=== PATIENT | male | born 1970 | race Caucasian/White ===

== ENCOUNTER 2019-05-11 00:14 | Emergency (ER) | payer SELFPAY ==
[~2019-05-11] VITALS: Ht 182.8 cm; Wt 159.0 kg
--- NOTE | 2019-05-11 00:39 | ED EENT ---
History of Present Illness General Chief Complaint: Ear Problems Stated Complaint: EAR PAIN Nursing Triage Note: PT. REPORTED HE HAS HAD LEFT EAR PAIN FOR ABOUT 2 WEEKS. HE HAS TRIED OVER THE COUNTER MEDICATION BUT IT DID NOT HELP. Source: patient Exam Limitations: no limitations History of Present Illness Date Seen by Provider: May 11, 2019 Time Seen by Provider: 00:20 Initial Comments The patient is an obese pleasant 49-year-old male who presents for evaluation of left-sided ear pain over the last 1-2 weeks. He states that qxwz-wtc-bcqokwl medications are not helping. He denies any swimming recently. He is alert and oriented 4, calm, and appears to be in no distress. Timing/Duration: gradual Location: ear (L) Prearrival Treatment: no prearrival treatment Associated Symptoms: denies symptoms Allergies and Home Medications Allergies Coded Allergies: No Known Drug Allergies (Unverified , 05/11/19) Patient Home Medication List Home Medication List Reviewed: Yes Review of Systems Review of Systems Constitutional: no symptoms reported Eyes: No Symptoms Reported Ears: Pain (left ear) Nose: no symptoms reported Mouth: no symptoms reported Throat: no symptoms reported Respiratory: no symptoms reported Cardiovascular: no symptoms reported Gastrointestinal: no symptoms reported Musculoskeletal: no symptoms reported Skin: no symptoms reported Neurological: No Symptoms Reported Hematologic/Lymphatic: No Symptoms Reported Immunological/Allergic: no symptoms reported All Other Systems Reviewed Negative Unless Noted: Yes Past Snttvqv-Vmzexg-Reumje Hx Past Med/Social Hx: Reviewed Nursing Past Med/Soc Hx Patient Social History Recent Foreign Travel: No Contact w/Someone Who Travel: No Recent Infectious Disease Expo: No Recent Hopitalizations: No Physical Abuse: No Sexual Abuse: No Mistreated: No Fear: No Seasonal Allergies Seasonal Allergies: No Past Medical History Surgeries: No Respiratory: No Cardiac: No Neurological: No Genitourinary: No Gastrointestinal: No Musculoskeletal: No Endocrine: No HEENT: No Cancer: No Psychosocial: No Integumentary: No Blood Disorders: No Physical Exam Vital Signs Vital Signs - First Documented 05/11/19 00:26 Temp 36.5 Pulse 92 B/P (MAP) 163/108 (126) O2 Delivery Room Air Height, Weight, BMI Height: '" Weight: lbs. oz. kg; 47.00 BMI Method: General Appearance: WD/WN, no apparent distress Eyes: bilateral eye normal inspection, bilateral eye PERRL, bilateral eye EOMI Ears: right ear canal normal, right ear TM normal; left ear foreign body, left ear swelling; bilateral ear auricle normal Nose: normal inspection Mouth/Throat: normal mouth inspection Neck: non-tender, full range of motion, supple Cardiovascular: regular rate, rhythm, no edema, no JVD Respiratory: lungs clear, normal breath sounds, no respiratory distress Gastrointestinal: normal bowel sounds, non tender, soft Neurologic/Psychiatric: alert, normal mood/affect Skin: normal color, warm/dry Progress/Results/Core Measures Results/Orders Vital Signs/I&O 05/11/19 00:26 Temp 36.5 Pulse 92 B/P (MAP) 163/108 (126) O2 Delivery Room Air Blood Pressure Mean: 126 Progress Progress Note : Progress Note @0035 - otitis externa is present on the left. Advise follow-up with PCP in the next 1-2 days and return to the Emergency Department immediately for new or worsening symptoms. The patient expresses verbal understanding and agreement wi th the plan. Departure Impression Primary Impression: Left otitis externa Disposition: 01 HOME, SELF-CARE Condition: Stable Departure-Patient Inst. Decision time for Depature: 00:36 Referrals: JAVY ULLOA MD (PCP/Family) Primary Care Physician Patient Instructions: Outer Ear Infection (DC) Add. Discharge Instructions: Take the prescribed medicine instructed. Return to the emergency Department immediately for new or worsening symptoms. Follow-up with your doctor in the next 1-2 days. Scripts Tramadol HCl (Ultram) 50 Mg Tablet 50 MG PO Q6H for 3 Days, #12 TAB Prov: MADELINE DAMIAN DO 05/11/19 Ciprofloxacin/Hydrocortisone (Cipro Hc Otic Suspension) 1 Ea Susp 3 DROPS OT BID for 7 Days, #10 ML Prov: MADELINE DAMIAN DO 05/11/19 MADELINE DAMIAN DO May 11, 2019 00:38
[2019-05-11] MEDS ORDERED: TRAM-42 PO (00:40)
[2019-05-11] MEDS ORDERED: NF-CIPROHC OT (00:40)
[2019-05-11 00:42] VITALS: BP 163/108
== END 2019-05-11 00:43 | disposition home or self-care (01) ==
LOC: ER FS 00:19
DX: H60.92 Unspecified otitis externa, left ear (principal)
CPT/HCPCS: 99282

== ENCOUNTER 2020-12-13 06:28 | Emergency (ER) | payer SELFPAY ==
[~2020-12-13] VITALS: Ht 182.8 cm; Wt 141.6 kg
[~2020-12-13 06:28] MED LIST: NF-CIPROHC OT; TRAM-42 PO
--- NOTE | 2020-12-13 07:01 | ED General ---
General Chief Complaint: Dizziness/Syncope Stated Complaint: DIZZINESS;SCALP TENDERNESS Nursing Triage Note: Pt awake, alert, oriented. Ambulated from waiting room to ER 4 without difficulty. Pt reports that he felt dizzy when he woke up this morning. Also has tenderness to the top of his head. Denies falling or injury. Airway intact. Respirations even et unlabored. Skin warm, dry, appropriate for ethnicity. No sx of acute distress. (LASHAWN MUNROE DO) History of Present Illness Date Seen by Provider: Dec 13, 2020 Time Seen by Provider: 06:50 Initial Comments 50-year-old male presents with dizziness. He reports that when he woke up this morning he felt dizzy. He also has a tender spot on the top of his head. He did not have any syncope. He denies any injury or trauma to the area. He denies a history of headaches. He denies any nausea or vomiting. He describes the dizziness as a room spinning. (LASHAWN MUNROE DO) Allergies and Home Medications Allergies Coded Allergies: No Known Drug Allergies (Unverified , 05/11/19) Patient Home Medication List Home Medication List Reviewed: Yes (LASHAWN MUNROE DO) Ciprofloxacin/Hydrocortisone (Cipro Hc Otic Suspension) 1 Ea Susp, 3 DROPS OT BID Prescribed by: MADELINE DAMIAN on 05/11/19 0040 Meclizine HCl (Meclizine HCl) 25 Mg Tablet, 25 MG PO Q8H Prescribed by: REBECA MARTINES on 12/13/20 0755 Tramadol HCl (Ultram) 50 Mg Tablet, 50 MG PO Q6H Prescribed by: MADELINE DAMIAN on 05/11/19 0040 Review of Systems Review of Systems Constitutional: No chills; dizziness; No fever EENTM: see HPI Respiratory: no symptoms reported Cardiovascular: no symptoms reported Gastrointestinal: no symptoms reported Genitourinary: no symptoms reported Musculoskeletal: no symptoms reported Skin: see HPI Psychiatric/Neurological: No Symptoms Reported Hematologic/Lymphatic: No Symptoms Reported (LASHAWN MUNROE DO) Past Zrwpnmi-Mpchnj-Icvagp Hx Seasonal Allergies Seasonal Allergies: No (LASHAWN MUNROE DO) Past Medical History Surgeries: No Respiratory: No Cardiac: No Neurological: No Genitourinary: No Gastrointestinal: No Musculoskeletal: No Endocrine: No HEENT: No Cancer: No Psychosocial: No Integumentary: No Blood Disorders: No (CARI MUNROER Mara DO) Physical Exam Vital Signs Vital Signs - First Documented 12/13/20 06:35 Temp 36.2 Pulse 80 Resp 20 B/P (MAP) 118/74 (89) Pulse Ox 97 O2 Delivery Room Air (REBECA MARTINES ) Vital Signs Capillary Refill : Less Than 3 Seconds (CARI MUNROER Mara DO) Height, Weight, BMI Height: '" Weight: lbs. oz. kg; 42.00 BMI Method: General Appearance: No Apparent Distress, WD/WN HEENT: PERRL/EOMI Neck: Full Range of Motion, Normal Inspection Respiratory: Lungs Clear, Normal Breath Sounds Cardiovascular: Regular Rate, Rhythm, No Edema Extremity: Normal Capillary Refill, Normal Inspection Neurologic/Psychiatric: Alert, Oriented x3, No Motor/Sensory Deficits Skin: Other (Small discoloration to the swollen area on top of the scalp that when you press on it makes dizziness worse ) (MUNROELASHAWN L DO) Progress/Results/Core Measures Suspected Sepsis SIRS Temperature: Pulse: 80 Respiratory Rate: 20 Blood Pressure 118 /74 Mean: 89 (LASHAWN MUNROE DO) Results/Orders Lab Results Laboratory Tests Test 12/13/20 07:23 Range/Units White Blood Count 5.4 4.3-11.0 10^3/uL Red Blood Count 5.53 H 4.30-5.52 10^6/uL Hemoglobin 18.0 H 13.3-17.7 g/dL Hematocrit 53 40-54 % Mean Corpuscular Volume 96 80-99 fL Mean Corpuscular Hemoglobin 33 25-34 pg Mean Corpuscular Hemoglobin Concent 34 32-36 g/dL Red Cell Distribution Width 14.4 10.0-14.5 % Platelet Count 128 L 130-400 10^3/uL Mean Platelet Volume 10.6 9.0-12.2 fL Immature Granulocyte % (Auto) 0 % Neutrophils (%) (Auto) 48 42-75 % Lymphocytes (%) (Auto) 39 12-44 % Monocytes (%) (Auto) 7 0-12 % Eosinophils (%) (Auto) 5 0-10 % Basophils (%) (Auto) 1 0-10 % Neutrophils # (Auto) 2.6 1.8-7.8 X 10^3 Lymphocytes # (Auto) 2.1 1.0-4.0 X 10^3 Monocytes # (Auto) 0.4 0.0-1.0 X 10^3 Eosinophils # (Auto) 0.3 0.0-0.3 10^3/uL Basophils # (Auto) 0.0 0.0-0.1 10^3/uL Immature Granulocyte # (Auto) 0.0 0.0-0.1 10^3/uL Neutrophils % (Manual) 50 % Lymphocytes % (Manual) 39 % Monocytes % (Manual) 4 % Eosinophils % (Manual) 4 % Basophils % (Manual) 1 % Atypical Lymphocytes 2 % Toxic Granulation 1+ Platelet Estimate DECREASED Percent Immature Platelet Fraction 3.9 0.0-7.6 % Blood Morphology Comment NORMAL Sodium Level 138 135-145 MMOL/L Potassium Level 3.9 3.6-5.0 MMOL/L Chloride Level 107 98-107 MMOL/L Carbon Dioxide Level 23 21-32 MMOL/L Anion Gap 8 5-14 MMOL/L Blood Urea Nitrogen 17 7-18 MG/DL Creatinine 0.58 L 0.60-1.30 MG/DL Estimat Glomerular Filtration Rate 150 BUN/Creatinine Ratio 29 Glucose Level 113 H 70-105 MG/DL Calcium Level 8.7 8.5-10.1 MG/DL Corrected Calcium 8.9 8.5-10.1 MG/DL Total Bilirubin 0.6 0.1-1.0 MG/DL Aspartate Amino Transf (AST/SGOT) 38 H 5-34 U/L Alanine Aminotransferase (ALT/SGPT) 37 0-55 U/L Alkaline Phosphatase 67 40-136 U/L C-Reactive Protein < 0.30 <0.50 MG/DL Total Protein 7.0 6.4-8.2 GM/DL Albumin 3.7 3.2-4.5 GM/DL Smear Scan ATYP LYMPHS FLAGGED (ROVENSTINE,REBECA L DO) Medications Given in ED Current Medications Medications Dose Ordered Sig/Kevin Route Start Time Stop Time Status Last Admin Dose Admin Meclizine HCl 25 mg ONCE ONCE PO 12/13/20 07:15 12/13/20 07:16 DC 12/13/20 07:15 25 MG (ROVENSTINE,REBECA L DO) Vital Signs/I&O 12/13/20 06:35 Temp 36.2 Pulse 80 Resp 20 B/P (MAP) 118/74 (89) Pulse Ox 97 O2 Delivery Room Air (REBECA MARTINES DO) Vital Signs/I&O Capillary Refill : Less Than 3 Seconds (LASHAWN MUNROE DO) Blood Pressure Mean: 89 Consults Consults : Consults Notes NDICATION: Vertigo and scalp pain. COMPARISON: None available. FINDINGS: No hyperdense hemorrhage or space-occupying mass. No hydrocephalus or midline shift. The basilar cisterns are normal. Carias-white matter differentiation is well preserved. The mastoid air cells are clear. Paranasal sinuses are normal. No focal osseous abnormality of the calvarium. IMPRESSION: 1. No acute intracranial process. 1. No scalp swelling or calvarial abnormality. Dictated by: Dictated on workstation # [id number] Dict: 12/13/20719 Trans: 12/13/20720 [facility] [id number] Interpreted by: ARAVIND BENAVIDES MD Electronically signed by: ARAVIND BENAVIDES MD 12/13/20720 (REBECA MARTINES DO) Departure Impression Primary Impression: Dizziness Disposition: 01 HOME, SELF-CARE Condition: Stable Departure-Patient Inst. Decision time for Depature: 07:48 (REBECA MARTINES DO) Referrals: JAVY MENJIVAR MD (PCP/Family) Primary Care Physician Patient Instructions: Vertigo (a Type of Dizziness) (DC) Add. Discharge Instructions: See Dr Menjivar in 2 weeks if not improving, sooner if worse. All discharge instructions reviewed with patient and/or family. Voiced understanding. Scripts Meclizine HCl (Meclizine HCl) 25 Mg Tablet 25 MG PO Q8H for Dizziness, #20 TAB Prov: REBECA MARTINES DO 12/13/20 Work/School Note: Work Release Form Date Seen in the Emergency Department: Dec 13, 2020 Return to Work: Dec 14, 2020 Restrictions: No Restrictions LASHAWN MUNROE DO Dec 13, 2020 07:01 REBECA MARTINES DO Dec 13, 2020 07:52
[2020-12-13] MEDS ORDERED: MECLIZINE 25 MG (ANTIVERT) TAB PO ONE (07:15)
--- NOTE | 2020-12-13 07:23 | Diagnostic Imaging Report ---
PROCEDURE: CT head without contrast. TECHNIQUE: Multiple contiguous axial images were obtained through the brain without the use of intravenous contrast. Auto Exposure Controls were utilized during the CT exam to meet ALARA standards for radiation dose reduction. INDICATION: Vertigo and scalp pain. COMPARISON: None available. FINDINGS: No hyperdense hemorrhage or space-occupying mass. No hydrocephalus or midline shift. The basilar cisterns are normal. Carias-white matter differentiation is well preserved. The mastoid air cells are clear. Paranasal sinuses are normal. No focal osseous abnormality of the calvarium. IMPRESSION: 1. No acute intracranial process. 1. No scalp swelling or calvarial abnormality. Dictated by: Dictated on workstation # [id number]
[2020-12-13 07:29] LABS: WHITE BLOOD COUNT 5.4 10^3/uL (4.3-11.0)
[2020-12-13 07:31] LABS: EOSINOPHILS % (AUTO) 5 % (0-10); HEMATOCRIT 53 % (40-54); LYMPHOCYTES % (AUTO) 39 % (12-44); MEAN CORPUSCULAR HEMOGLOBIN 33 pg (25-34); MEAN CORPUSCULAR HGB CONC 34 g/dL (32-36); MEAN CORPUSCULAR VOLUME 96 fL (80-99); MEAN PLATELET VOLUME 10.6 fL (9.0-12.2); MONOCYTES % (AUTO) 7 % (0-12); NEUTROPHILS % (AUTO) 48 % (42-75); PLATELET COUNT 128 10^3/uL (130-400)
[2020-12-13 07:32] LABS: BASOPHILS % (AUTO) 1 % (0-10); EOSINOPHILS # (AUTO) 0.3 10^3/uL (0.0-0.3); LYMPHOCYTES # (AUTO) 2.1 X 10^3 (1.0-4.0); MONOCYTES # (AUTO) 0.4 X 10^3 (0.0-1.0); NEUTROPHILS # (AUTO) 2.6 X 10^3 (1.8-7.8)
[2020-12-13 07:43] LABS: BASOPHILS % (MANUAL) 1 %; EOSINOPHILS % (MANUAL) 4 %; LYMPHOCYTES % (MANUAL) 39 %; MONOCYTES % (MANUAL) 4 %; NEUTROPHILS % (MANUAL) 50 %; SMEAR SCAN COMMENT ATYP LYMPHS FLAGGED
[2020-12-13 07:44] LABS: ATYPICAL LYMPHOCYTES 2 %; PLATELET ESTIMATE DECREASED; RBC MORPH NORMAL; TOXIC GRANULATION/VACUOLAZATIO 1+
[2020-12-13 07:50] LABS: BUN/CREATININE RATIO 29; CARBON DIOXIDE 23 MMOL/L (21-32); CHLORIDE 107 MMOL/L (98-107); CREATININE SERUM 0.58 MG/DL (0.60-1.30); GFR ESTIMATED 150; GLUCOSE 113 MG/DL (70-105); POTASSIUM 3.9 MMOL/L (3.6-5.0); SODIUM 138 MMOL/L (135-145)
[2020-12-13 07:51] LABS: ALANINE AMINOTRANSFERASE 37 U/L (0-55); ALBUMIN 3.7 GM/DL (3.2-4.5); ALKALINE PHOSPHATASE 67 U/L (40-136); BILIRUBIN,TOTAL 0.6 MG/DL (0.1-1.0); CALCIUM 8.7 MG/DL (8.5-10.1)
[2020-12-13] MEDS ORDERED: MECL-149 PO (07:55)
[2020-12-13 08:01] VITALS: BP 118/74
== END 2020-12-13 07:58 | disposition home or self-care (01) ==
LOC: EDUNIT# 06:28 → ER FS 06:31
DX: R42 Dizziness and giddiness (principal)
CPT/HCPCS: 36415; 70450; 80053; 85007; 85027; 86141

== ENCOUNTER 2021-09-20 18:10 | Inpatient (IN) | payer SELFPAY ==
[~2021-09-20] VITALS: Ht 182.9 cm; Wt 142.4 kg
[~2021-09-20 18:10] MED LIST changes: +MECL-149 PO
[2021-09-20] MEDS ORDERED: HEParin 1000 UNIT/ML (10ML VIAL) FOR BOLUS ONE (18:18)
[2021-09-20] MEDS ORDERED: LIDOCAINE 1% INJ 20 ML VIAL ONE (18:18)
[2021-09-20] MEDS ORDERED: MIDAZOLAM 5 MG/5 ML (VERSED) VIAL ONE (18:18)
[2021-09-20] MEDS ORDERED: NS IV 1000 ML 1,000 ML ONE (18:18)
[2021-09-20] MEDS ORDERED: HEParin (CATH LAB) 2,000 ML IV ONE (18:18)
[2021-09-20] MEDS ORDERED: NITRO DRIP 25000 MCG/D5W 250 ML IV ONE (18:19)
--- NOTE | 2021-09-20 18:20 | ED Chest Pain ---
General Chief Complaint: Chest Pain Stated Complaint: STEMI Source: patient, EMS Exam Limitations: no limitations History of Present Illness Date Seen by Provider: Sep 20, 2021 Time Seen by Provider: 18:14 Initial Comments Patient is a 51-year-old male who presents to the emergency department by [facility] chief complaint ST segment elevation PR. Chest pain onset approximately 4 PM while the patient was at rest. He stated initially that he thought he was having gas pains and was belching quite a bit. He states that he took some gas medicine without relief of symptoms. He is short of breath and nauseous. He received a significant amount of morphine approximately 15 mg prior to arrival as well as full-strength aspirin and 4 of Zofran. Patient has never had symptoms like this before. He denies any significant past medical history. He is a smoker. No recent illnesses. All other review of systems reviewed and negative except as stated. 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 Associated Symptoms: nausea/vomiting, shortness of breath, weakness Allergies and Home Medications Allergies Coded Allergies: No Known Drug Allergies (Unverified , 05/11/19) Patient Home Medication List Home Medication List Reviewed: Yes Ciprofloxacin/Hydrocortisone (Cipro Hc Otic Suspension) 1 Ea Susp, 3 DROPS OT BID Prescribed by: MADELINE DAMIAN on 05/11/19 0040 Meclizine HCl (Meclizine HCl) 25 Mg Tablet, 25 MG PO Q8H Prescribed by: REBECA MARTINES on 12/13/20 0755 Tramadol HCl (Ultram) 50 Mg Tablet, 50 MG PO Q6H Prescribed by: MADELINE DAMIAN on 05/11/19 0040 Review of Systems Review of Systems Constitutional: see HPI, diaphoresis, weakness EENTM: No Symptoms Reported Respiratory: Shortness of Air Cardiovascular: Chest Pain Gastrointestinal: Nausea Genitourinary: No Symptoms Reported Musculoskeletal: no symptoms reported Skin: no symptoms reported Psychiatric/Neurological: No Symptoms Reported All Other Systems Reviewed Negative Unless Noted: Yes Past Mmxtzdy-Tdrrjq-Uqladc Hx Seasonal Allergies Seasonal Allergies: No Past Medical History Surgeries: No Respiratory: No Cardiac: No Neurological: No Genitourinary: No Gastrointestinal: No Musculoskeletal: No Endocrine: No HEENT: No Cancer: No Psychosocial: No Integumentary: No Blood Disorders: No Physical Exam Vital Signs Vital Signs - First Documented Capillary Refill : Height, Weight, BMI Height: '" Weight: lbs. oz. kg; 42.00 BMI Method: General Appearance: WD/WN, Anxious, Moderate Distress HEENT: PERRL/EOMI Neck: Normal Inspection Respiratory: Lungs Clear, Normal Breath Sounds, No Accessory Muscle Use, No Respiratory Distress Cardiovascular: Regular Rate, Rhythm, Normal Peripheral Pulses Gastrointestinal: Non Tender, Soft Extremity: Normal Inspection, Normal Range of Motion, No Pedal Edema Neurologic/Psychiatric: Alert, Oriented x3, No Motor/Sensory Deficits, Normal Mood/Affect Skin: Normal Color, Diaphoresis Progress/Results/Core Measures Results/Orders Lab Results Laboratory Tests Test 09/20/21 18:23 Range/Units White Blood Count 9.1 4.3-11.0 10^3/uL Red Blood Count 5.80 H 4.30-5.52 10^6/uL Hemoglobin 18.2 H 13.3-17.7 g/dL Hematocrit 53 40-54 % Mean Corpuscular Volume 91 80-99 fL Mean Corpuscular Hemoglobin 31 25-34 pg Mean Corpuscular Hemoglobin Concent 34 32-36 g/dL Red Cell Distribution Width 13.1 10.0-14.5 % Platelet Count 166 130-400 10^3/uL Mean Platelet Volume 10.1 9.0-12.2 fL Immature Granulocyte % (Auto) 0 % Neutrophils (%) (Auto) 63 42-75 % Lymphocytes (%) (Auto) 27 12-44 % Monocytes (%) (Auto) 6 0-12 % Eosinophils (%) (Auto) 3 0-10 % Basophils (%) (Auto) 1 0-10 % Neutrophils # (Auto) 5.7 1.8-7.8 10^3/uL Lymphocytes # (Auto) 2.5 1.0-4.0 10^3/uL Monocytes # (Auto) 0.6 0.0-1.0 10^3/uL Eosinophils # (Auto) 0.2 0.0-0.3 10^3/uL Basophils # (Auto) 0.1 0.0-0.1 10^3/uL Immature Granulocyte # (Auto) 0.0 0.0-0.1 10^3/uL Prothrombin Time 14.2 12.2-14.7 SEC INR Comment 1.1 0.8-1.4 Activated Partial Thromboplast Time 34 24-35 SEC Sodium Level 137 135-145 MMOL/L Potassium Level 3.8 3.6-5.0 MMOL/L Chloride Level 104 98-107 MMOL/L Carbon Dioxide Level 17 L 21-32 MMOL/L Anion Gap 16 H 5-14 MMOL/L Blood Urea Nitrogen 14 7-18 MG/DL Creatinine 1.00 0.60-1.30 MG/DL Estimat Glomerular Filtration Rate 92 BUN/Creatinine Ratio 14 Glucose Level 158 H 70-105 MG/DL Calcium Level 8.7 8.5-10.1 MG/DL Corrected Calcium 8.8 8.5-10.1 MG/DL Magnesium Level 1.7 1.6-2.4 MG/DL Total Bilirubin 0.4 0.1-1.0 MG/DL Aspartate Amino Transf (AST/SGOT) 38 H 5-34 U/L Alanine Aminotransferase (ALT/SGPT) 47 0-55 U/L Alkaline Phosphatase 64 40-136 U/L Myoglobin 78.6 10.0-92.0 NG/ML Troponin I < 0.028 <0.028 NG/ML Total Protein 7.6 6.4-8.2 GM/DL Albumin 3.9 3.2-4.5 GM/DL My Orders Orders - JENNIFER CARRIZALES MD Ekg Tracing (09/20/21 18:11) Ticagrelor Tablet (Brilinta Tablet) (09/20/21 18:30) Heparin Injection (Heparin Injection) (09/20/21 18:30) Cbc With Automated Diff (09/20/21 18:18) Magnesium (09/20/21 18:18) Comprehensive Metabolic Panel (09/20/21 18:18) Myoglobin Serum (09/20/21 18:18) Protime With Inr (09/20/21 18:18) Partial Thromboplastin Time (09/20/21 18:18) O2 (09/20/21 18:18) Monitor-Rhythm Ecg Trace Only (09/20/21 18:18) Lipid Panel (09/21/21 06:00) Ed Iv/Invasive Line Start (09/20/21 18:18) Troponin I Earnest (09/20/21 18:18) Heparin Injection (Heparin Injection) (09/20/21 18:30) Medications Given in ED Current Medications Medications Dose Ordered Sig/Kevin Route Start Time Stop Time Status Last Admin Dose Admin Heparin Sodium (Porcine) 5,000 units ONCE ONCE IV 09/20/21 18:30 09/20/21 18:31 DC 09/20/21 18:26 5,000 UNITS Ticagrelor 180 mg ONCE ONCE PO 09/20/21 18:30 09/20/21 18:31 DC 09/20/21 18:22 180 MG Vital Signs/I&O 09/20/21 09/20/21 09/20/21 18:13 18:13 18:29 Temp 35.7 35.7 Pulse 99 101 Resp 20 16 B/P (MAP) 160/107 (124) 169/101 Pulse Ox 100 100 100 O2 Delivery Nasal Cannula Nasal Cannula Nasal Cannula O2 Flow Rate 2.00 2.00 2.00 Initial ECG Impression Date: Sep 20, 2021 Initial ECG Impression Time: 18:15 Initial ECG Rate: 97 Initial ECG Rhythm: Normal Sinus Initial ECG Intervals MD interval 221 QRS [address] segment elevation septal leads V1, V2, V3 and V4, ST depression inferiorly leads II, III and aVF Departure Communication (Admissions) Time/Spoke to Admitting Phy: 18:15 Dr Lewis Impression Primary Impression: STEMI (ST elevation myocardial infarction) Qualified Codes: I21.3 - ST elevation (STEMI) myocardial infarction of unspecified site Disposition: ADMITTED INPATIENT Condition: Critical Admissions Decision to Admit Reason: Admit from ER (General) Decision to Admit/Date: Sep 20, 2021 Time/Decision to Admit Time: 18:15 Departure-Patient Inst. Referrals: JAVY ULLOA MD (PCP/Family) Primary Care Physician JENNIFER CARRIZALES MD Sep 20, 2021 18:20
[2021-09-20] MEDS ORDERED: TICAGRELOR 90 MG TABLET (BRILINTA) PO ONE (18:30)
--- NOTE | 2021-09-20 18:31 | Conscious Sedation/ASA ---
Conscious Sedation Pre-Proced Time 18:31 ASA Score 3 For ASA 3 and 4: Consider anesthesia and medical clearance. Also, for patients with a history of failed moderate sedation consider anesthesia. Airway Lungs Heart ASA score ASA 1: a normal healthy patient ASA 2: a patient with a mild systemic disease (mid diabetes, controlled hypertension, obesity x ASA 3: a patient with a severe systemic disease that limits activity (angina, COPD, prior Myocardial infarction) ASA 4: a patient with an incapacitating disease that is a constant threat to life (CHF, renal failure) ASA 5: a moribund patient not expected to survive 24 hrs. (ruptured aneurysm) ASA 6: a declared brain- patient whose organs are being harvested. For emergent operations, add the letter E after the classification Mallampati Classification Grade 3 Sedation Plan Analgesia, Amnesia, Plan communicated to team members, Discussed options with patient/fam, Discussed risks with patient/fam The patient is an appropriate candidate to undergo the planned procedure, sedation, and anesthesia. The patient immediately re-assessed prior to indication. ILANA LENNON MD Sep 20, 2021 18:31
--- NOTE | 2021-09-20 18:31 | Cardiology History & Physical ---
HPI-Cardiology Cardiology Consultation Date of Consultation 09/20/21 Date of Admission Time Seen by Provider: 18:28 Indication: Acute myocardial infarction HPI 51 years old gentleman with no significant past medical history, has been having chest pain on and off. Started to have severe chest pain for the past 2-1/2 hours, called EMS, he was noted to have ST elevation in the anterior wall and brought to the emergency room. Nitroglycerin did not help his pain. On my evaluation he is diaphoretic, anxious, having active chest pain in the retrosternal area. PMH-Cardiology Seasonal Allergies Seasonal Allergies: No Surgeries No Respiratory No Cardiovascular No Neurological No Genitourinary No Gastrointestinal No Musculoskeletal No Endocrine No HEENT No Cancer No Psychosocial No Integumentary No Blood Transfusions No Other PMHx No significant past medical history Social History Patient Social History Employed/Student: employed Smoking: Current every day smoker Have you traveled recently?: No Family Hx Other Noncontributory ROS-Cardiology Review of Systems General: No Chills, No Night Sweats, No Fatigue, No Malaise, No Appetite HEENT: No Head Aches, No Visual Changes, No Eye Pain, No Ear Pain, No Dysphasia, No Sinus Congestion, No Post Nasal Drip, No Sore Throat Pulmonary: Dyspnea; No Cough, No Pleuritic Chest Pain Cardiovascular: Chest Pain; No: Palpitations, Orthopnea, Paroxysmal Noc. Dyspnea, Edema, Lt Headedness Gastrointestinal: No: Nausea, Vomiting, Abdominal Pain, Diarrhea, Constipation, Melena, Hematochezia Genitourinary: No Dysuria, No Frequency, No Incontinence, No Hematuria, No Retention Musculoskeletal: No: neck pain, shoulder pain, arm pain, back pain, hand pain, leg pain, foot pain Neurological: No: Weakness, Numbness, Incoordination, Change in speech, Confusion, Seizures Home Medications & Allergies Allergies: Coded Allergies: No Known Drug Allergies (Unverified , 05/11/19) Home Medication List Reviewed: Yes Exam-Cardiology Vital Signs Vital Signs Date Time Temp Pulse Resp B/P (MAP) Pulse Ox O2 Delivery O2 Flow Rate FiO2 09/20/21 18:13 35.7 99 20 160/107 (124) 100 Nasal Cannula 2.00 Exam General Appearance: Alert, Oriented X3, Cooperative, No Acute Distress HEENT: Atraumatic, PERRLA Respiratory: Clear to Auscultation, Normal Air Movement Cardiovascular: Regular Rate, Normal S1, Normal S2, No Murmurs Abdominal: Normal Bowel Sounds, Soft, No Tenderness, No Hepatosplenomegaly, No Masses Extremities: No Clubbing, No Cyanosis, No Edema, Normal Pulses, No Tenderness/Swelling Skin: No Rashes, No Breakdown, No Significant Lesion Neuro: Normal Gait, Normal Speech, Strength at 5/5 X4 Ext, Normal Tone, Sensation Intact Psych/Mental Status: Mental Status NL, Mood NL Results Labs Labs Laboratory Tests 09/20/21 18:23: A/P-Cardiology Admission Diagnosis Acute ST elevation myocardial infarction Coronary artery disease Hypertension Hyperlipidemia Admission Status: Inpatient Order (span 2 midnights) Reason for Inpatient Admission: Acute ST elevation myocardial infarction Assessment/Plan Acute ST elevation myocardial infarction in the anterior lateral wall. Planning to proceed with emergency cardiac catheterization Given aspirin and Brilinta and 5000 units of heparin Coronary artery disease, plan to proceed with cardiac catheterization Hypertension, starting low-dose beta-blockers Hyperlipidemia, starting statin empirically Tobaccoism, educated on smoking cessation Morbid obesity, BMI 51. ILANA LENNON MD Sep 20, 2021 18:31
[2021-09-20 18:35] LABS: BASOPHILS # (AUTO) 0.1 10^3/uL (0.0-0.1); BASOPHILS % (AUTO) 1 % (0-10); EOSINOPHILS # (AUTO) 0.2 10^3/uL (0.0-0.3); EOSINOPHILS % (AUTO) 3 % (0-10); HEMATOCRIT 53 % (40-54); HEMOGLOBIN 18.2 g/dL (13.3-17.7); LYMPHOCYTES # (AUTO) 2.5 10^3/uL (1.0-4.0); LYMPHOCYTES % (AUTO) 27 % (12-44); MEAN CORPUSCULAR HEMOGLOBIN 31 pg (25-34); MEAN CORPUSCULAR HGB CONC 34 g/dL (32-36); MEAN CORPUSCULAR VOLUME 91 fL (80-99); MEAN PLATELET VOLUME 10.1 fL (9.0-12.2); MONOCYTES # (AUTO) 0.6 10^3/uL (0.0-1.0); MONOCYTES % (AUTO) 6 % (0-12); NEUTROPHILS # (AUTO) 5.7 10^3/uL (1.8-7.8); NEUTROPHILS % (AUTO) 63 % (42-75); PLATELET COUNT 166 10^3/uL (130-400); WHITE BLOOD COUNT 9.1 10^3/uL (4.3-11.0)
[2021-09-20 18:51] LABS: INR 1.1 (0.8-1.4); PROTHROMBIN TIME PATIENT 14.2 SEC (12.2-14.7)
[2021-09-20 18:59] LABS: ALBUMIN 3.9 GM/DL (3.2-4.5); BILIRUBIN,TOTAL 0.4 MG/DL (0.1-1.0); CALCIUM 8.7 MG/DL (8.5-10.1); MAGNESIUM 1.7 MG/DL (1.6-2.4); POTASSIUM 3.8 MMOL/L (3.6-5.0); TOTAL PROTEIN 7.6 GM/DL (6.4-8.2)
[2021-09-20] MEDS ORDERED: EPTIFIBATIDE BOLUS 20 ML IV ONE (19:03)
[2021-09-20] MEDS ORDERED: fentaNYL INJ 100 MCG/2 ML AMP ONE (19:04)
[2021-09-20] MEDS ORDERED: PATIENT MAY USE OWN MEDS, ALL PO SCH (19:30)
--- NOTE | 2021-09-20 19:37 | Cardiac Cath Report ---
Cardiac Cath Report Physician (s)/Cotton Cleaner (s) Physician ILANA LENNON MD Pre-Procedure Diagnosis Pre-Procedure Diagnosis: Acute ST elevation myocardial infarction Post-Procedure Note Procedure Start Date: Sep 20, 2021 Name of Procedure: Emergency cardiac catheterization Emergency stenting and thrombectomy of the LAD Findings/Procedure Note PROCEDURE NOTE: 51 years old gentleman with no significant past history, smoker with morbid obesity, admitted with acute ST elevation myocardial infarction in the anterior wall, emergency cardiac catheterization was advised. After explaining the procedure to the patient, all pros and cons were explained, all questions were answered. The patient signed the consent and then he was placed on the cardiac catheterization laboratory. Groin was prepped SL fashion local anesthesia was used. Sheath placed in the right femoral artery. Du right catheter advanced to the right coronary system, angiogram was done then I used Du left 3.5 guide advanced to the left coronary system, did angiogram and patient has total occlusion of the LAD I had significant difficulty advancing the BMW wire through the thrombus in the LAD once I advanced it through the thrombus I was able to establish some flow. The wire was in the small diagonal branch. I advanced export catheter and did 1 flush with 10 cc of blood removed and clots subsequently immediate establishment of flow was identified. Door to establishment of flow was 37 minutes. Then I proceeded with balloon dilatation using trek 3.5 x 20 mm balloon then I proceeded with deployment of a harshil point stent 3.5 x 23 postdilated with 4.0 trek balloon expanded to 4.2 mm with excellent results. After recannulizing of the LAD patient had multiple episodes of accelerated idioventricular rhythm and nonsustained ventricular tachycardia, given lidocaine and then amiodarone bolus. Pigtail catheter was advanced to the left ventricular cavity, pressure was measured, pullback LV to aorta was done At the end of the procedure the sheath was removed. Closure device was deployed FINDINGS: Hemodynamics LV 100/20, end-diastolic pressure of 20 Aorta 103/76 mean of 88 ANATOMY: Left Main is free of obstructive disease Left Anterior Descending has diffuse ectasia proximally, total occlusion pro ximally, successful thrombectomy then balloon angioplasty then deployment of a stent using harshil point 3.5 x 23 expanded to 4.2 mm in the proximal LAD with excellent results. Door to establishment of flow was 37 minutes Left Circumflex is moderate in size. 50% stenosis in the mid circumflex artery nonobstructive disease Right Coronary Artery is dominant artery with diffuse tortuosity 30-40% mid right coronary artery stenosis nonobstructive disease LV Gram was not done, pressure was measured CONCLUSION: 1. Acute ST elevation myocardial infarction in the anterior wall with door to establish small flow 37-minute 2. Status post total occlusion of the proximal LAD successful thrombectomy and balloon angioplasty then deployment of harshil point stent 3.5 x 23 mm expanded to 4.2 mm with excellent results 3. Mild to moderate disease in the circumflex artery, mild diffuse disease in the dominant right coronary artery 4. Elevated left ventricular end-diastolic pressure DISCUSSION AND RECOMMENDATION: Patient was loaded with aspirin Plavix, received Integrilin and heparin. We will continue monitoring in ICU Anesthesia Type: Conscious Sedation Estimated blood loss (mL): 35 ml Contrast Amount: l Total Radiation Dose: 1820 mGy Post-Procedure Diagnosis Post-operative diagnosis: Acute ST elevation myocardial infarction Coronary artery disease Tobaccoism Obesity ILANA LENNON MD Sep 20, 2021 19:37
--- NOTE | 2021-09-20 20:29 | Tele-ICU Progress Note ---
Progress Note 51M without known PMH, obesity, smoker admitted with an acute STEMI in the anterior lateral wall. He was given nitro, ASA, brilinta, heparin and taken for emergent cath. Found to have total occlusion of the prox LAD now s/p successful thrombectomy and balloon angioplasty with deployment of stent. Patient is now resting comfortably, in no distress. - STEMI: now s/p intervention as above. Anticoagulation and antiplatelets per cardiology. Flat bedrest/groin monitoring per protocol. - HTN: metoprolol initiated - HLD: lipitor and fish oil initiated. Lipid panel ordered for AM. Focused Exam Height, Weight, BMI Height: '" Weight: lbs. oz. kg; 43.82 BMI Method: BUZZ OMER MD Sep 20, 2021 20:28
[2021-09-20] MEDS: NS IV 1000 ML 1,000 ML IV SCH (21:38)
[2021-09-21 05:18] LABS: BASOPHILS % (AUTO) 1 % (0-10); EOSINOPHILS # (AUTO) 0.1 10^3/uL (0.0-0.3); EOSINOPHILS % (AUTO) 1 % (0-10); HEMATOCRIT 54 % (40-54); HEMOGLOBIN 17.4 g/dL (13.3-17.7); LYMPHOCYTES # (AUTO) 1.9 10^3/uL (1.0-4.0); LYMPHOCYTES % (AUTO) 23 % (12-44); MEAN CORPUSCULAR HEMOGLOBIN 31 pg (25-34); MEAN CORPUSCULAR HGB CONC 32 g/dL (32-36); MEAN CORPUSCULAR VOLUME 97 fL (80-99); MEAN PLATELET VOLUME 10.4 fL (9.0-12.2); MONOCYTES # (AUTO) 0.7 10^3/uL (0.0-1.0); MONOCYTES % (AUTO) 8 % (0-12); NEUTROPHILS # (AUTO) 5.6 10^3/uL (1.8-7.8); NEUTROPHILS % (AUTO) 67 % (42-75); PLATELET COUNT 147 10^3/uL (130-400); WHITE BLOOD COUNT 8.4 10^3/uL (4.3-11.0)
[2021-09-21 05:32] LABS: POTASSIUM 3.7 MMOL/L (3.6-5.0)
[2021-09-21 05:33] LABS: ALBUMIN 3.8 GM/DL (3.2-4.5)
[2021-09-21 05:34] LABS: CALCIUM 8.8 MG/DL (8.5-10.1)
[2021-09-21 05:35] LABS: TOTAL PROTEIN 7.3 GM/DL (6.4-8.2)
[2021-09-21 05:37] LABS: BILIRUBIN,TOTAL 0.7 MG/DL (0.1-1.0)
[2021-09-21 05:38] LABS: PHOSPHORUS 2.7 MG/DL (2.3-4.7)
[2021-09-21 05:39] LABS: CREATININE SERUM 0.79 MG/DL (0.60-1.30)
[2021-09-21 05:42] LABS: MAGNESIUM 1.8 MG/DL (1.6-2.4)
[2021-09-21] MEDS: PANTOPRAZOLE 40 MG (PROTONIX) TAB PO SCH ×2 (08:03→10:05)
[2021-09-21] MEDS: NS IV 1000 ML 1,000 ML IV SCH ×2 (08:04→14:41)
[2021-09-21] MEDS: TICAGRELOR 90 MG TABLET (BRILINTA) PO SCH ×3 (08:04→20:39)
[2021-09-21] MEDS ORDERED: FUROSEMIDE 40 MG/4 ML INJ (LASIX) IVP ONE (08:45)
[2021-09-21] MEDS: OMEGA 3 (FISH OIL) 1000 MG CAP PO SCH ×2 (10:04→18:12)
[2021-09-21] MEDS: ISOSORBIDE MONONITRATE 30 MG (IMDUR) TAB PO SCH (10:05)
[2021-09-21] MEDS: ASPIRIN E.C. 81 MG (ECOTRIN) TAB PO SCH (10:05)
--- NOTE | 2021-09-21 10:24 | Tele-ICU Progress Note ---
Subjective Date Seen by a Provider: Sep 21, 2021 Time Seen by a Provider: 10:24 Subjective/Events-last exam Available chart/vitals/labs/images reviewed. Video assessment done using telemetry ICU camera, rest of exam as per RN. Discussion with the RN, exam as per RN. Hospital course Patient admitted with STEMI and underwent cardiac catheterization. Had LAD stenting. Today he is awake alert and complains of mild chest pain around the 19/01. No nausea or vomiting. No diaphoresis Sepsis Event Evaluation Height, Weight, BMI Height: '" Weight: lbs. oz. kg; 43.82 BMI Method: Exam Exam Patient acknowledged, consented, and participated in this virtual visit which was conducted using real time audio/video Vital Signs Date Time Temp Pulse Resp B/P (MAP) Pulse Ox O2 Delivery O2 Flow Rate FiO2 09/21/21 10:00 88 28 146/89 95 Room Air 09/21/21 09:00 88 25 130/95 96 Room Air 09/21/21 08:00 86 17 139/90 95 Room Air 09/21/21 08:00 36.1 09/21/21 07:00 87 09/21/21 07:00 84 18 143/97 92 Room Air 09/21/21 06:00 90 24 143/97 93 Room Air 09/21/21 05:00 92 21 137/96 91 Room Air 09/21/21 04:00 36.3 09/21/21 04:00 Room Air 09/21/21 04:00 89 24 158/97 94 Room Air 09/21/21 03:00 87 29 153/93 94 Room Air 09/21/21 02:00 86 15 141/91 94 Room Air 09/21/21 01:00 88 09/21/21 01:00 90 14 158/95 95 Room Air 09/21/21 00:04 Room Air 09/21/21 00:00 37.0 09/21/21 00:00 92 16 130/89 93 Room Air 09/20/21 23:00 97 12 147/95 94 Room Air 09/20/21 21:30 93 15 135/87 95 Room Air 09/20/21 21:00 94 19 136/90 96 Room Air 09/20/21 20:30 101 16 142/91 92 Room Air 09/20/21 20:15 89 19 130/87 96 Room Air 09/20/21 20:00 91 15 120/79 94 Room Air 09/20/21 20:00 Room Air 09/20/21 19:56 90 09/20/21 19:48 37.0 09/20/21 19:45 92 15 129/85 94 Room Air 09/20/21 18:29 35.7 101 16 169/101 100 Nasal Cannula 2.00 09/20/21 18:13 100 Nasal Cannula 2.00 09/20/21 18:13 35.7 99 20 160/107 (124) 100 Nasal Cannula 2.00 I & O 09/21/21 06:59 Intake Total 2250 ml Output Total 2375 ml Balance -125 ml Height & Weight Height: '" Weight: lbs. oz. kg; 43.82 BMI Method: General Appearance: WD/WN, Anxious, Moderate Distress HEENT: PERRL/EOMI Neck: Normal Inspection Respiratory: Lungs Clear, Normal Breath Sounds, No Accessory Muscle Use, No Respiratory Distress Cardiovascular: Regular Rate, Rhythm, Normal Peripheral Pulses Capillary Refill: Less Than 3 Seconds Extremity: Normal Inspection, Normal Range of Motion, No Pedal Edema Neurologic/Psychiatric: Alert, Oriented x3, No Motor/Sensory Deficits, Normal Mood/Affect Skin: Normal Color, Diaphoresis Results Lab Laboratory Tests 09/20/21 18:23 09/21/21 04:47 Assessment/Plan Assessment/Plan 1. STEMI anterior wall 2. Status post LAD stenting 3. Tobacco abuse disorder 4. Morbid obesity. Recommendations 1. We will give him nitroglycerin for protocol and see whether his chest pain improves. 2. Antiplatelet therapy and aspirin per grocery packer 3. Weight reduction is suggested 4. Cessation of tobacco abuse is strongly suggested. 5. LDL goal is less than 70. 6. DVT prophylaxis per cardiology Critical Care: Critically Ill Patient Time spent with patient (mins): 15 GALEN HAWTHORNE MD Sep 21, 2021 10:24
[2021-09-21] MEDS ORDERED: NITROGLYCERIN 0.4 MG SL TABS BTL 25'S SL PRN (11:45)
--- NOTE | 2021-09-21 13:13 | Cardiology Progress Note ---
Subjective Date Seen by Provider: Sep 21, 2021 Time Seen by Provider: 13:08 Subjective/Events-last exam Patient was seen at bedside, laying down comfortably, denied any chest pain. No palpitation. Review of Systems General: No Chills, No Night Sweats, No Fatigue, No Malaise, No Appetite, No Other HEENT: No Head Aches, No Visual Changes, No Eye Pain, No Ear Pain, No Dysphasia, No Sinus Congestion, No Post Nasal Drip, No Sore Throat, No Other Pulmonary: No Dyspnea, No Cough, No Pleuritic Chest Pain, No Other Cardiovascular: No: Chest Pain, Palpitations, Orthopnea, Paroxysmal Noc. Dyspnea, Edema, Lt Headedness, Other Objective-Cardiology Exam Last Set of Vital Signs Vital Signs 09/20/21 09/21/21 09/21/21 09/21/21 18:29 08:00 12:00 12:55 Temp 36.1 Pulse 96 Resp 26 B/P (MAP) 119/75 Pulse Ox 93 O2 Delivery Room Air O2 Flow Rate 2.00 I&O Intake and Output 09/21/21 00:00 Intake Total 1150 ml Output Total 1000 ml Balance 150 ml Intake Oral 550 ml IV Total 600 ml Output Urine Total 1000 ml Daily Weight Change No General: Alert, Oriented X3, Cooperative, No Acute Distress HEENT: Atraumatic, PERRLA Lungs: Clear to Auscultation, Normal Air Movement Heart: Regular Rate, Normal S1, Normal S2, No Murmurs Abdomen: Normal Bowel Sounds, Soft, No Tenderness, No Hepatosplenomegaly, No Masses Extremities: No Clubbing, No Cyanosis, No Edema, Normal Pulses, No Tenderness/Swelling Skin: No Rashes, No Breakdown, No Significant Lesion Neuro: Normal Gait, Normal Speech, Strength at 5/5 X4 Ext, Normal Tone, Sensation Intact Psych/Mental Status: Mental Status NL, Mood NL Results Lab Laboratory Tests 09/20/21 18:23 09/21/21 04:47 A/P-Cardiology Admission Diagnosis Acute ST elevation myocardial infarction Coronary artery disease Hypertension Hyperlipidemia Assessment/Plan Acute ST elevation myocardial infarction in the anterior lateral wall. Status post emergency cardiac catheterization and stenting of the LAD on September 20, 2021 with excellent results Coronary artery disease, Status post cardiac catheterization done on September 20, 2021. Emergency thromb ectomy and stenting of the proximal LAD with a harshil point stent 3.5 x 23 mm, mild to moderate disease in the circumflex artery with mild diffuse disease in the dominant right coronary artery. Chest pain, still having recurrent angina, starting Imdur 30 mg daily Congestive heart failure, acute left ventricular systolic dysfunction, ischemic cardiomyopathy Anterior wall is hypokinetic on echocardiogram with ejection fraction 40 to 45%. Started on low-dose beta-blockers, I am adding losartan and monitor tolerance and response Hypertension, starting low-dose beta-blockers Hyperlipidemia, LDL 167, started on Lipitor 80 mg daily Tobaccoism, educated on smoking cessation Morbid obesity, BMI 51. ILANA LENNON MD Sep 21, 2021 13:13
[2021-09-21] MEDS ORDERED: LIDOCAINE BOLUS 100 MG/5 ML (IMS) SYR INJ ONE (13:29)
[2021-09-21] MEDS ORDERED: AMIODARONE (BOLUS) 150 MG/3 ML IV ONE (13:29)
[2021-09-21] MEDS: LOSARTAN 25 MG (COZAAR) TAB PO SCH (14:41)
[2021-09-21] MEDS ORDERED: CYCLOBENZAPRINE 10 MG (FLEXERIL) TAB PO PRN (17:30)
[2021-09-22] MEDS: NS IV 1000 ML 1,000 ML IV SCH ×2 (01:39→07:43)
[2021-09-22 05:49] LABS: BASOPHILS % (AUTO) 1 % (0-10); EOSINOPHILS # (AUTO) 0.3 10^3/uL (0.0-0.3); EOSINOPHILS % (AUTO) 3 % (0-10); HEMATOCRIT 49 % (40-54); HEMOGLOBIN 16.8 g/dL (13.3-17.7); LYMPHOCYTES # (AUTO) 2.5 10^3/uL (1.0-4.0); LYMPHOCYTES % (AUTO) 30 % (12-44); MEAN CORPUSCULAR HEMOGLOBIN 31 pg (25-34); MEAN CORPUSCULAR HGB CONC 34 g/dL (32-36); MEAN CORPUSCULAR VOLUME 92 fL (80-99); MEAN PLATELET VOLUME 10.6 fL (9.0-12.2); MONOCYTES # (AUTO) 0.7 10^3/uL (0.0-1.0); MONOCYTES % (AUTO) 8 % (0-12); NEUTROPHILS # (AUTO) 4.9 10^3/uL (1.8-7.8); NEUTROPHILS % (AUTO) 58 % (42-75); PLATELET COUNT 134 10^3/uL (130-400); WHITE BLOOD COUNT 8.4 10^3/uL (4.3-11.0)
[2021-09-22 06:03] LABS: ALBUMIN 3.7 GM/DL (3.2-4.5); POTASSIUM 3.5 MMOL/L (3.6-5.0)
[2021-09-22 06:04] LABS: CALCIUM 8.8 MG/DL (8.5-10.1)
[2021-09-22 06:05] LABS: TOTAL PROTEIN 7.1 GM/DL (6.4-8.2)
[2021-09-22 06:07] LABS: BILIRUBIN,TOTAL 1.1 MG/DL (0.1-1.0)
[2021-09-22 06:09] LABS: CREATININE SERUM 0.73 MG/DL (0.60-1.30); PHOSPHORUS 2.6 MG/DL (2.3-4.7)
[2021-09-22 06:12] LABS: MAGNESIUM 1.9 MG/DL (1.6-2.4)
[2021-09-22] MEDS ORDERED: KCL 20 MEQ TAB (K-DUR) PO ONE (07:30)
[2021-09-22] MEDS: ASPIRIN E.C. 81 MG (ECOTRIN) TAB PO SCH (07:39)
[2021-09-22] MEDS: LOSARTAN 25 MG (COZAAR) TAB PO SCH (07:40)
[2021-09-22] MEDS: PANTOPRAZOLE 40 MG (PROTONIX) TAB PO SCH (07:40)
[2021-09-22] MEDS: TICAGRELOR 90 MG TABLET (BRILINTA) PO SCH (07:40)
[2021-09-22] MEDS: ISOSORBIDE MONONITRATE 30 MG (IMDUR) TAB PO SCH (07:40)
[2021-09-22] MEDS: OMEGA 3 (FISH OIL) 1000 MG CAP PO SCH (07:40)
[2021-09-22] MEDS ORDERED: TICA90TA PO (09:08)
[2021-09-22] MEDS ORDERED: PANT40TA52 PO (09:08)
[2021-09-22] MEDS ORDERED: ASPI-1238 PO (09:08)
[2021-09-22] MEDS ORDERED: ISOS30TA82 PO (09:08)
[2021-09-22] MEDS ORDERED: ATOR80TA76 PO (09:08)
[2021-09-22] MEDS ORDERED: LOSA25TA41 PO (09:08)
[2021-09-22] MEDS ORDERED: MTP25TSR PO (09:08)
--- NOTE | 2021-09-22 09:09 | Discharge Inst-Post CATH ---
Discharge Inst-CATH/EP Problems Reviewed?: Yes Post Cardiac Cath/EP D/C Inst Follow Up/Plan Appointment with Dr. Lewis's office in 2 to 4 weeks <b>CARDIAC CATH/EP PROCEDURE DISCHARGE INSTRUCTIONS</b> ACTIVITY * Go Home directly and rest. * Limit activity of the leg (or wrist if it was used) for 7 days including aer obics, swimming, jogging, bicycling, etc. * Restrict stair-climbing for 7 days if possible, if not, climb up with your non-cath leg, then bring together on the same step. * Avoid lifting, pushing, pulling or excessive movement of the affected extremi ty for 7 days. * Customary sexual activity may be resumed after 2 days-use caution not to use a position that strains or causes pain to the affected extremity. * No driving for 24 hours. * NO SMOKING. * Avoid straining for bowel movements for 7 days. * Gentle walking on level ground is allowed. * Returning to work will depend on the type of procedure and the results. Your doctor will discuss this with you. CALL YOUR DOCTOR FOR ANY OF THE FOLLOWING: *If bleeding from the puncture site occurs- Apply gentle pressure to site with clean cloth and call your doctor or EMS. * If a knot or lump forms under the skin, increases in size, or causes pain. * If bruising appears to be worsening or moving further down your leg instead of disappearing. * Temperature above 101 F. CARE OF YOUR GROIN INCISION; * Bruising or purple discoloration of the skin near the puncture site is common. * You may shower only, no bathtub bathing for 5 days. Be careful to avoid slipping as your leg may feel stiff. * If a closure device was used on your femoral artery, please see the attached guide regarding care of the device and your leg. * Leave dressing on FOR 24 hours. CARE OF YOUR WRIST INCISION; * Bruising or purple discoloration of the skin near the puncture site is common. * You may shower. * DO NOT submerge wrist. * Leave dressing on FOR 24 hours. ILANA LEWIS MD Sep 22, 2021 09:09
--- NOTE | 2021-09-22 09:11 | Cardiology Discharge Summary ---
Discharge Summary Hospital Course Problems Reviewed?: Yes Hospital Course Date of Admission: Sep 20, 2021 at 19:31 Admission Diagnosis : Family Physician/Provider: Umberto Menjivar MD Date of Discharge: 09/22/21 Discharge Diagnosis: [ Acute STEMI CAD HTN Hyperlipidemia] Hospital Course: [Acute ST elevation myocardial infarction in the anterior lateral wall. Status post emergency cardiac catheterization and stenting of the LAD on September 20, 2021 with excellent results Educated about compliance with aspirin and Brilinta and provided coupon for Brilinta Coronary artery disease, Status post cardiac catheterization done on September 20, 2021. Emergency thrombectomy and stenting of the proximal LAD with a harshil point stent 3.5 x 23 mm, mild to moderate disease in the circumflex artery with mild diffuse disease in the dominant right coronary artery. Chest pain, still having recurrent angina, starting Imdur 30 mg daily Congestive heart failure, acute left ventricular systolic dysfunction, ischemic cardiomyopathy Anterior wall is hypokinetic on echocardiogram with ejection fraction 40 to 45%. Started on low-dose beta-blockers, I am adding losartan and monitor tolerance and response Hypertension, starting low-dose beta-blockers Hyperlipidemia, LDL 167, started on Lipitor 80 mg daily Tobaccoism, educated on smoking cessation Morbid obesity, BMI 51. ] Labs and Pending Lab Test: Laboratory Tests 09/22/21 05:14: White Blood Count 8.4, Red Blood Count 5.36, Hemoglobin 16.8, Hematocrit 49, Mean Corpuscular Volume 92, Mean Corpuscular Hemoglobin 31, Mean Corpuscular Hemoglobin Concent 34, Red Cell Distribution Width 13.3, Platelet Count 134, Mean Platelet Volume 10.6, Immature Granulocyte % (Auto) 0, Neutrophils (%) (Auto) 58, Lymphocytes (%) (Auto) 30, Monocytes (%) (Auto) 8, Eosinophils (%) (Auto) 3, Basophils (%) (Auto) 1, Neutrophils # (Auto) 4.9, Lymphocytes # (Auto) 2.5, Monocytes # (Auto) 0.7, Eosinophils # (Auto) 0.3, Basophils # (Auto) 0.0, Immature Granulocyte # (Auto) 0.0, Sodium Level 135, Potassium Level 3.5L, Chloride Level 102, Carbon Dioxide Level 21, Anion Gap 12, Blood Urea Nitrogen 9, Creatinine 0.73, Estimat Glomerular Filtration Rate 112, BUN/Creatinine Ratio 12, Glucose Level 152H, Calcium Level 8.8, Corrected Calcium 9.0, Phosphorus Level 2.6, Magnesium Level 1.9, Total Bilirubin 1.1H, Aspartate Amino Transf (AST/SGOT) 191H, Alanine Aminotransferase (ALT/SGPT) 79H, Alkaline Phosphatase 60, Total Protein 7.1, Albumin 3.7 Home Meds Active Pantoprazole Sodium 40 Mg Tablet.dr 40 Mg PO DAILY Aspirin EC (Aspirin) 81 Mg Tablet.dr 81 Mg PO DAILY Losartan Potassium 25 Mg Tablet 25 Mg PO DAILY Metoprolol Succinate 25 Mg Tab.er.24h 25 Mg PO DAILY Isosorbide Mononitrate ER (Isosorbide Mononitrate) 30 Mg Tab.er.24h 30 Mg PO DAILY Atorvastatin Calcium 80 Mg Tablet 80 Mg PO HS Brilinta (Ticagrelor) 90 Mg Tablet 90 Mg PO BID Meclizine HCl 25 Mg Tablet 25 Mg PO Q8H Cipro Hc Otic Suspension (Ciprofloxacin/Hydrocortisone) 1 Ea Susp 3 Drops OT BID 7 Days Assessment/Pt DC Instructions Arrangement for follow-up in 2 to 4 weeks Discharge Diet: Cardiac Diet Activity as Tolerated: Yes Discharge Physical Examination Allergies: Coded Allergies: No Known Drug Allergies (Unverified , 05/11/19) General Appearance: No Apparent Distress, WD/WN HEENT: PERRL/EOMI, TMs Normal, Normal ENT Inspection, Pharynx Normal Respiratory: Chest Non Tender, Lungs Clear, Normal Breath Sounds, No Accessory Muscle Use Cardiovascular: Regular Rate, Rhythm, No Edema Gastrointestinal: Normal Bowel Sounds Extremity: Normal Capillary Refill Skin: Normal Color Neurologic/Psychiatric: Alert, Oriented x3, No Motor/Sensory Deficits Clinical Quality Measures Admission Status Admission Status: Inpatient Order (span 2 midnights) Reason for Inpatient Admission: Acute ST elevation myocardial infarction AMI/AHF: ASA po Prior to arrival: Yes ILANA LENNON MD Sep 22, 2021 09:11
[2021-09-22 09:55] VITALS: BP 117/77
== END 2021-09-22 16:02 | disposition home or self-care (01) | DRG 246 ==
LOC: ER 18:10 → EDUNIT# 18:10 → CATH 18:30 → ICU 19:31
PROVIDERS: ADMIT Internal Medicine Cardiovascular Disease; ATTEND Internal Medicine Cardiovascular Disease
PROC: 027035Z Dilation of Coronary Artery, One Artery with Two Drug-eluting Intraluminal Devices, Percutaneous Approach (ICD-10-PCS; principal; 2021-09-20)
PROC: 02C03ZZ Extirpation of Matter from Coronary Artery, One Artery, Percutaneous Approach (ICD-10-PCS; 2021-09-20)
PROC: 4A023N7 Measurement of Cardiac Sampling and Pressure, Left Heart, Percutaneous Approach (ICD-10-PCS; 2021-09-20)
PROC: B2111ZZ Fluoroscopy of Multiple Coronary Arteries using Low Osmolar Contrast (ICD-10-PCS; 2021-09-20)
DX: I21.09 ST elevation (STEMI) myocardial infarction involving other coronary artery of anterior wall (principal); I50.21 Acute systolic (congestive) heart failure; Z68.43 Body mass index [BMI] 50.0-59.9, adult; E78.5 Hyperlipidemia, unspecified; F17.210 Nicotine dependence, cigarettes, uncomplicated; E66.01 Morbid (severe) obesity due to excess calories; I11.0 Hypertensive heart disease with heart failure; I25.5 Ischemic cardiomyopathy; I25.119 Atherosclerotic heart disease of native coronary artery with unspecified angina pectoris
CPT/HCPCS: 36415; 80053; 80061; 83735; 83874; 84100; 84484; 85025; 85027; 85347; 85610; 85730; 92973; 93005; 93041; 93306; 93458

== ENCOUNTER → 2022-04-22 | Outpatient (CLI) | payer OTHER ==
[~2022-04-22] MED LIST changes: +ASPI-1238 PO; +ATOR80TA76 PO; +ISOS30TA82 PO; +LOSA25TA41 PO; +MTP25TSR PO; +PANT40TA52 PO; +TICA90TA PO
--- NOTE | 2022-04-22 13:37 | Diagnostic Imaging Report ---
INDICATION: Pain COMPARISON: None available. TECHNIQUE: 4 radiographs the left elbow dated 04/22/2022. FINDINGS: No acute fracture or dislocation. No destructive osseous process. Joint spaces are well-maintained. No elbow joint effusion. No suspicious radiopaque foreign body. IMPRESSION: No acute osseous abnormality. Dictated by: Dictated on workstation # [id number]
--- NOTE | 2022-04-22 13:37 | Diagnostic Imaging Report ---
Indication: Pain COMPARISON: None available. TECHNIQUE: 4 radiographs of the left shoulder dated 04/22/2022. FINDINGS: Moderate degenerative changes of the acromial clavicular joint. Minimal calcifications are seen adjacent to the superior lateral humeral head at the expected location of the rotator cuff insertion. No acute fracture or dislocation. No destructive osseous process. Glenohumeral joint relationship is well-maintained. Subcarinal spaces well-maintained. IMPRESSION: No acute fracture with mild to moderate scattered degenerative changes, greatest involving the acromioclavicular joint. Small calcifications at the expected location of the rotator cuff insertion, likely related to minimal calcific tendinitis. Dictated by: Dictated on workstation # [id number]
--- NOTE | 2022-04-22 14:17 | Diagnostic Imaging Report ---
INDICATION: Pain COMPARISON: None available TECHNIQUE: 5 radiographs of the pelvis and bilateral hips dated 04/22/2022. FINDINGS: Mild degenerative changes the partially visualized lower lumbar spine. The sacroiliac joints are intact. Pubic symphysis is intact. No acute fracture or dislocation. No destructive osseous process. Bilateral hip joint spaces are well-maintained with minimal osteophyte formation noted. The bilateral femoral heads maintain their normal shape and contour. No suspicious radiopaque foreign body. IMPRESSION: No acute osseous abnormality with minimal degenerative changes present. Dictated by: Dictated on workstation # [id number]
== END ==
LOC: RAD 11:00
PROVIDERS: ATTEND Family Medicine
DX: M19.012 Primary osteoarthritis, left shoulder (principal); R10.2 Pelvic and perineal pain; M25.522 Pain in left elbow
CPT/HCPCS: 73523